=== PATIENT | female | born 1935 | race Caucasian/White ===

== ENCOUNTER 2023-04-16 17:23 | Inpatient (IN) | payer OTHER, MEDICARE ==
[2023-04-16] MEDS ORDERED: PIPERACILLIN/TAZOB 3.375 GM 3.375 GM in DEXTROSE 5%-WATER - 50 ML IVPB ONE (17:33)
[2023-04-16] MEDS ORDERED: PIPERACILLIN/TAZOBACTAM 3.375 GM VIAL IVPB ONE (18:39)
[2023-04-16 19:03] LABS: HEMATOCRIT 35.8 % (32.4-45.2); HEMOGLOBIN 11.9 G/dL (10.7-15.3); MCH 32.2 pg (25.7-33.7); MCHC 33.4 g/dl (32.0-36.0); MEAN CELL VOLUME 96.5 fl (80-96); MEAN PLT VOLUME 9.1 fl (7.5-11.1); PLATELET COUNT 250.2 10^3/uL (134-434); RBC 3.71 10^6/uL (3.60-5.2); RDW 14.4 % (11.6-15.6); WHITE BLOOD COUNT 6.5 10^3/uL (4.0-10.8)
[2023-04-16] MEDS ORDERED: FLUCONAZOLE 150 MG TABLET PO ONE ×2 (19:06→19:45)
[2023-04-16 19:18] LABS: INR 0.89 (0.83-1.09); PROTHROMBIN TIME (PATIENT) 10.3 SEC (9.7-13.0)
[2023-04-16 19:21] LABS: ACTIVATED PTT 29.6 SECONDS (25.2-36.5)
[2023-04-16 19:30] LABS: ALBUMIN 3.9 g/dl (3.4-5.0); BILIRUBIN,TOTAL 0.2 mg/dl (0.2-1); BLOOD UREA NITROGEN 28.7 mg/dl (7-18); CALCIUM 8.2 mg/dl (8.5-10.1); CREATININE 1.2 mg/dl (0.6-1.3); POTASSIUM 4.7 mmol/L (3.5-5.1); SGOT/AST 23.4 U/L (15-37); SGPT/ALT 20.8 U/L (7-52); TOT PROT 5.8 g/dl (6.4-8.2)
[2023-04-16 19:51] LABS: PLATELET ESTIMATE ADEQUATE
[2023-04-16 21:53] VITALS: BMI 21.3
[2023-04-16] MEDS: CITALOPRAM HYDROBROMIDE 20 MG TABLET PO SCH (22:13)
[2023-04-16] MEDS: MELATONIN 5 MG TABLETS PO SCH (22:13)
[2023-04-16] MEDS: LACTOBACILLUS ACIDOPHILUS 1 TABLET PO SCH (22:13)
[2023-04-16] MEDS ORDERED: PANTOPRAZOLE SOD 40 MG SUSPENSION PACKET PO ONE (22:45)
[2023-04-17] MEDS ORDERED: PIPERACILLIN/TAZOB 2.25 GM 2.25 GM in DEXTROSE 5%-WATER - 50 ML IVPB SCH (02:00)
[2023-04-17] MEDS ORDERED: ACETAMINOPHEN 1000 MG/100 ML BAG IVPB PRN (06:29)
[2023-04-17] MEDS: PIPERACILLIN/TAZOB 3.375 GM 3.375 GM in DEXTROSE 5%-WATER - 50 ML IVPB SCH ×2 (09:38→17:15)
[2023-04-17 09:42] LABS: ALBUMIN 3.6 g/dl (3.4-5.0); BILIRUBIN,TOTAL 0.2 mg/dl (0.2-1); BLOOD UREA NITROGEN 26.2 mg/dl (7-18); CALCIUM 7.8 mg/dl (8.5-10.1); CREATININE 1.2 mg/dl (0.6-1.3); POTASSIUM 4.4 mmol/L (3.5-5.1); SGOT/AST 23.2 U/L (15-37); SGPT/ALT 19.7 U/L (7-52); TOT PROT 5.2 g/dl (6.4-8.2)
[2023-04-17] MEDS: LACTOBACILLUS ACIDOPHILUS 1 TABLET PO SCH ×2 (10:37→21:26)
[2023-04-17] MEDS: LOSARTAN POTASSIUM 50 MG TABLET PO SCH (10:37)
[2023-04-17] MEDS: NYSTATIN 100,000 UNIT/GM TOPICAL CREAM 15 GM TUBE TP SCH ×2 (10:38→21:28)
[2023-04-17] MEDS: CITALOPRAM HYDROBROMIDE 20 MG TABLET PO SCH (21:25)
[2023-04-17] MEDS: MELATONIN 5 MG TABLETS PO SCH (21:25)
[2023-04-17] MEDS: TEMAZEPAM 15 MG CAPSULE PO SCH (21:25)
[2023-04-17] MEDS: OFLOXACIN 0.3% OTIC SOLUTION 5 ML BOTTLE AD SCH (22:34)
[2023-04-18] MEDS: PIPERACILLIN/TAZOB 3.375 GM 3.375 GM in DEXTROSE 5%-WATER - 50 ML IVPB SCH ×3 (02:16→18:26)
[2023-04-18 09:20] LABS: BASO % 1.2 % (0-2.0); EOS % 4.4 % (0-4.5); HEMATOCRIT 36.8 % (32.4-45.2); HEMOGLOBIN 12.1 GM/dL (10.7-15.3); LYMPH % 40.1 % (8-40); MCH 31.5 pg (25.7-33.7); MCHC 32.9 g/dl (32.0-36.0); MEAN CELL VOLUME 95.5 fl (80-96); MEAN PLT VOLUME 8.8 fl (7.5-11.1); MONO % 8.1 % (3.8-10.2); NEUT % 46.2 % (42.8-82.8); PLATELET COUNT 248 10^3/uL (134-434); RBC 3.85 M/mm3 (3.60-5.2); RDW 13.8 % (11.6-15.6); WHITE BLOOD COUNT 5.1 K/mm3 (4.0-10.0)
[2023-04-18 09:41] LABS: POTASSIUM 4.7 mmol/L (3.5-5.1)
[2023-04-18] MEDS: LACTOBACILLUS ACIDOPHILUS 1 TABLET PO SCH ×2 (09:45→21:17)
[2023-04-18] MEDS: LOSARTAN POTASSIUM 50 MG TABLET PO SCH (09:45)
[2023-04-18 09:47] LABS: BILIRUBIN,TOTAL 0.3 mg/dL (0.2-1)
[2023-04-18] MEDS: OFLOXACIN 0.3% OTIC SOLUTION 5 ML BOTTLE AD SCH ×2 (09:47→21:19)
[2023-04-18] MEDS: NYSTATIN 100,000 UNIT/GM TOPICAL CREAM 15 GM TUBE TP SCH ×2 (09:48→21:19)
[2023-04-18 09:53] LABS: CALCIUM 8.2 mg/dL (8.5-10.1)
[2023-04-18 09:54] LABS: ALBUMIN 3.2 g/dl (3.4-5.0); BLOOD UREA NITROGEN 18.7 mg/dL (7-18)
[2023-04-18 12:42] LABS: BASO % 0.9 % (0-2.0); EOS % 3.2 % (0-4.5); HEMATOCRIT 36.9 % (32.4-45.2); HEMOGLOBIN 12.7 GM/dL (10.7-15.3); LYMPH % 41.7 % (8-40); MCHC 34.5 g/dl (32.0-36.0); MEAN CELL VOLUME 92.8 fl (80-96); MEAN PLT VOLUME 8.9 fl (7.5-11.1); MONO % 7.7 % (3.8-10.2); NEUT % 46.5 % (42.8-82.8); PLATELET COUNT 266 10^3/uL (134-434); RBC 3.98 M/mm3 (3.60-5.2); RDW 13.7 % (11.6-15.6); WHITE BLOOD COUNT 5.8 K/mm3 (4.0-10.0)
[2023-04-18] MEDS: POLYETHYLENE GLYCOL (HEALTHYLAX) 3350 17 GM PACKET PO SCH (15:29)
[2023-04-18] MEDS: CITALOPRAM HYDROBROMIDE 20 MG TABLET PO SCH (21:17)
[2023-04-18] MEDS: MELATONIN 5 MG TABLETS PO SCH (21:18)
[2023-04-18] MEDS: TEMAZEPAM 15 MG CAPSULE PO SCH (21:18)
[2023-04-19] MEDS: PIPERACILLIN/TAZOB 3.375 GM 3.375 GM in DEXTROSE 5%-WATER - 50 ML IVPB SCH ×3 (02:08→18:47)
[2023-04-19] MEDS: LOSARTAN POTASSIUM 50 MG TABLET PO SCH (09:05)
[2023-04-19] MEDS: LACTOBACILLUS ACIDOPHILUS 1 TABLET PO SCH ×2 (09:05→21:00)
[2023-04-19] MEDS: POLYETHYLENE GLYCOL (HEALTHYLAX) 3350 17 GM PACKET PO SCH (09:06)
[2023-04-19] MEDS: NYSTATIN 100,000 UNIT/GM TOPICAL CREAM 15 GM TUBE TP SCH ×2 (09:07→21:02)
[2023-04-19] MEDS: OFLOXACIN 0.3% OTIC SOLUTION 5 ML BOTTLE AD SCH ×2 (09:07→21:02)
[2023-04-19] MEDS: TEMAZEPAM 15 MG CAPSULE PO SCH (21:00)
[2023-04-19] MEDS: MELATONIN 5 MG TABLETS PO SCH (21:00)
[2023-04-19] MEDS: CITALOPRAM HYDROBROMIDE 20 MG TABLET PO SCH (21:00)
[2023-04-20] MEDS: PIPERACILLIN/TAZOB 3.375 GM 3.375 GM in DEXTROSE 5%-WATER - 50 ML IVPB SCH ×3 (02:07→17:13)
[2023-04-20 04:35] VITALS: RESP 18
[2023-04-20 08:40] LABS: BASO % 0.7 % (0-2.0); EOS % 4.9 % (0-4.5); HEMATOCRIT 36.4 % (32.4-45.2); HEMOGLOBIN 11.9 GM/dL (10.7-15.3); LYMPH % 36.8 % (8-40); MCH 31.4 pg (25.7-33.7); MCHC 32.7 g/dl (32.0-36.0); MEAN CELL VOLUME 96.1 fl (80-96); MEAN PLT VOLUME 8.6 fl (7.5-11.1); MONO % 7.6 % (3.8-10.2); PLATELET COUNT 257 10^3/uL (134-434); RBC 3.79 M/mm3 (3.60-5.2); RDW 13.8 % (11.6-15.6); WHITE BLOOD COUNT 6.3 K/mm3 (4.0-10.0)
[2023-04-20 09:06] LABS: POTASSIUM 4.8 mmol/L (3.5-5.1)
[2023-04-20 09:16] LABS: BLOOD UREA NITROGEN 26.2 mg/dL (7-18)
[2023-04-20 09:18] LABS: BILIRUBIN,TOTAL 0.2 mg/dL (0.2-1)
[2023-04-20 09:24] LABS: CALCIUM 8.4 mg/dL (8.5-10.1)
[2023-04-20] MEDS: LACTOBACILLUS ACIDOPHILUS 1 TABLET PO SCH (09:25)
[2023-04-20] MEDS: LOSARTAN POTASSIUM 50 MG TABLET PO SCH (09:25)
[2023-04-20] MEDS: OFLOXACIN 0.3% OTIC SOLUTION 5 ML BOTTLE AD SCH (09:27)
[2023-04-20] MEDS: NYSTATIN 100,000 UNIT/GM TOPICAL CREAM 15 GM TUBE TP SCH (09:27)
[2023-04-20 14:41] VITALS: BP 138/62; PULSE 67; TEMP 97.4
== END 2023-04-20 19:40 | disposition home or self-care (01) | DRG 153 ==
LOC: FER 17:23 → FM/S 17:42 → J6S 04-17 14:19
PROVIDERS: ADMIT Internal Medicine; ATTEND Internal Medicine
DX: H66.001 Acute suppurative otitis media without spontaneous rupture of ear drum, right ear (principal); H70.891 Other mastoiditis and related conditions, right ear; I10 Essential (primary) hypertension; K64.9 Unspecified hemorrhoids; K21.9 Gastro-esophageal reflux disease without esophagitis; F32.A Depression, unspecified; H60.91 Unspecified otitis externa, right ear; K64.8 Other hemorrhoids; Z85.07 Personal history of malignant neoplasm of pancreas
CPT/HCPCS: 36415; 70480-TC; 80053; 83605; 85025; 85027; 85610; 85730; 86850; 86900; 86901; 87040; 87045; 87046; 87086; 87205; 87209; 87324; 87449; 99285-25

== ENCOUNTER 2023-09-12 16:59 | Inpatient (IN) | payer OTHER, MEDICARE ==
[2023-09-12] MEDS ORDERED: MECLIZINE HCL 25 MG TABLET (FP) ONE (18:52)
[2023-09-12 19:01] LABS: HEMATOCRIT 34.9 % (32.4-45.2); HEMOGLOBIN 11.8 G/dL (10.7-15.3); MCH 31.5 pg (25.7-33.7); MCHC 33.7 g/dl (32.0-36.0); MEAN CELL VOLUME 93.6 fl (80-96); PLATELET COUNT 190.4 10^3/uL (134-434); RBC 3.73 10^6/uL (3.60-5.2); RDW 13.9 % (11.6-15.6); WHITE BLOOD COUNT 5.4 10^3/uL (4.0-10.8)
[2023-09-12 19:14] LABS: ALBUMIN 3.7 g/dl (3.4-5.0); BILIRUBIN,TOTAL 0.4 mg/dl (0.2-1); CREATININE 0.9 mg/dl (0.6-1.3); TOT PROT 5.9 g/dl (6.4-8.2)
[2023-09-12 19:17] LABS: EPITHELIAL CELLS 0-5 /hpf
[2023-09-12] MEDS: MECLIZINE HCL 25 MG TABLET (FP) PO ONE (19:19)
[2023-09-12] MEDS: SODIUM CHLORIDE 0.9% 500 ML INFUS.BAG IV ONE (19:34)
[2023-09-12 19:36] LABS: PLATELET ESTIMATE ADEQUATE
[2023-09-13] MEDS: traZODone HCL 50 MG TABLET (FP) PO ONE (01:17)
[2023-09-13] MEDS: MECLIZINE HCL 25 MG TABLET (FP) PO PRN (01:17)
[2023-09-13] MEDS: DEXTROSE 5%-0.45% SALINE 1,000 ML IV SCH (06:47)
[2023-09-13] MEDS: CITALOPRAM HYDROBROMIDE 20 MG TABLET PO SCH (09:21)
[2023-09-13] MEDS: LOSARTAN POTASSIUM 50 MG TABLET PO SCH (09:21)
[2023-09-13] MEDS: ENOXAPARIN NA (PORCINE) 30 MG/0.3 ML DISP.SYRIN SQ SCH (09:21)
[2023-09-13 16:23] VITALS: BMI 20.5
[2023-09-13] MEDS ORDERED: LOSARTAN POTASSIUM 50 MG TABLET PO ONE (22:10)
[2023-09-13] MEDS: LOSARTAN POTASSIUM 50 MG TABLET PO ONE (22:45)
[2023-09-13] MEDS: traZODone HCL 50 MG TABLET (FP) PO PRN (23:16)
[2023-09-14] MEDS: LOSARTAN POTASSIUM 50 MG TABLET PO SCH (09:39)
[2023-09-14] MEDS: MECLIZINE HCL 25 MG TABLET (FP) PO SCH (21:00)
[2023-09-15] MEDS: ZOLPIDEM TARTRATE 5 MG TABLET PO ONE (02:40)
[2023-09-15] MEDS: ACETAMINOPHEN 325 MG TABLET (FP) PO ONE (02:40)
[2023-09-15] MEDS: LIDOCAINE 5% TOPICAL PATCH TP SCH (16:13)
[2023-09-15 17:10] LABS: HEMOGLOBIN 12.7 G/dL (10.7-15.3); MCH 31.5 pg (25.7-33.7); MCHC 33.4 g/dl (32.0-36.0); MEAN CELL VOLUME 94.2 fl (80-96); MEAN PLT VOLUME 9.2 fl (7.5-11.1); PLATELET COUNT 198.3 10^3/uL (134-434); RBC 4.03 10^6/uL (3.60-5.2); RDW 13.9 % (11.6-15.6); WHITE BLOOD COUNT 9.1 10^3/uL (4.0-10.8)
[2023-09-15 17:18] LABS: PLATELET ESTIMATE ADEQUATE
[2023-09-15] MEDS ORDERED: IBUPROFEN 400 MG TABLET (FP) PO PRN (17:30)
[2023-09-15] MEDS: ACETAMINOPHEN 325 MG TABLET (FP) PO SCH (17:51)
[2023-09-15] MEDS: IBUPROFEN 400 MG TABLET (FP) PO ONE (17:53)
[2023-09-15] MEDS: LIDOCAINE 5% TOPICAL PATCH TP STA (19:21)
[2023-09-15 20:13] VITALS: RESP 18
[2023-09-15] MEDS: LIDOCAINE PATCH REMOVAL MC SCH ×2 (21:30→21:31)
[2023-09-15] MEDS ORDERED: ZOLPIDEM TARTRATE 5 MG TABLET PO PRN (22:00)
[2023-09-16 07:07] VITALS: TEMP 97.8
[2023-09-16 11:05] VITALS: BP 119/64; PULSE 67
== END 2023-09-16 14:20 | disposition home or self-care (01) | DRG 149 ==
LOC: FER 16:59 → FM/S 17:52
PROVIDERS: ADMIT Internal Medicine; ATTEND Internal Medicine
DX: R42 Dizziness and giddiness (principal); I10 Essential (primary) hypertension; M10.9 Gout, unspecified
CPT/HCPCS: 36415; 70450-TC; 71101-TC-RT-FY; 72125-TC; 80053; 81003; 81015; 84484; 84550; 85027; 87086; 93005; 97116-GP; 97162-GP; 99285-25

== ENCOUNTER 2023-12-25 13:03 | Inpatient (IN) | payer OTHER, MEDICARE ==
[2023-12-25 14:32] LABS: BASO % 0.9 % (0-2.0); EOS % 5.2 % (0-4.5); HEMATOCRIT 30.8 % (32.4-45.2); HEMOGLOBIN 10.2 GM/dL (10.7-15.3); LYMPH % 23.7 % (8-40); MCH 30.1 pg (25.7-33.7); MEAN CELL VOLUME 91.3 fl (80-96); MEAN PLT VOLUME 8.8 fl (7.5-11.1); MONO % 9.3 % (3.8-10.2); NEUT % 60.9 % (42.8-82.8); PLATELET COUNT 192 10^3/uL (134-434); RBC 3.38 M/mm3 (3.60-5.2); RDW 15.4 % (11.6-15.6); WHITE BLOOD COUNT 6.4 K/mm3 (4.0-10.0)
[2023-12-25 14:33] LABS: VENOUS BASE EXCESS -5.6 mmol/L (-2-2); VENOUS O2 SATURATION 45.2 % (70-80); VENOUS PH 7.341 (7.310-7.410)
[2023-12-25] MEDS ORDERED: ACETAMINOPHEN INJECTION 100 ML IVPB ONE (14:34)
[2023-12-25 14:38] LABS: INR 0.88 (0.83-1.09); PROTHROMBIN TIME (PATIENT) 10.2 SEC (9.7-13.0)
[2023-12-25 14:41] LABS: ACTIVATED PTT 29.9 SECONDS (25.2-36.5)
[2023-12-25] MEDS: ACETAMINOPHEN 1000 MG/100 ML BAG IVPB ONE (14:51)
[2023-12-25 14:52] LABS: POTASSIUM 4.1 mmol/L (3.5-5.1)
[2023-12-25 14:55] LABS: BLOOD UREA NITROGEN 31.1 mg/dL (7-18)
[2023-12-25 14:57] LABS: CREATININE 1.2 mg/dL (0.55-1.3)
[2023-12-25 15:01] LABS: BILIRUBIN,TOTAL 0.4 mg/dL (0.2-1)
[2023-12-25] MEDS: LACTATED RINGERS SOLUTION 1000 ML INFUS.BAG IV ONE (16:21)
[2023-12-25 18:21] LABS: PH,URINE 5.5 (5.0-8.0); URINE APPEARANCE CLEAR; URINE BILIRUBIN NEGATIVE (NEGATIVE); URINE COLOR YELLOW; URINE GLUCOSE (UA) NEGATIVE (NEGATIVE); URINE KETONE NEGATIVE (NEGATIVE); URINE LEUK ESTERASE NEGATIVE (NEGATIVE); URINE NITRITE NEGATIVE (NEGATIVE); URINE PROTEIN NEGATIVE (NEGATIVE); URINE UROBILINOGEN 0.2 mg/dL (0.2-1.0)
[2023-12-25 20:00] LABS: BASO % 1.2 % (0-2.0); EOS % 5.5 % (0-4.5); HEMATOCRIT 31.8 % (32.4-45.2); HEMOGLOBIN 10.5 GM/dL (10.7-15.3); LYMPH % 27.2 % (8-40); MCH 30.3 pg (25.7-33.7); MCHC 33.1 g/dl (32.0-36.0); MEAN CELL VOLUME 91.5 fl (80-96); MEAN PLT VOLUME 9.3 fl (7.5-11.1); MONO % 7.9 % (3.8-10.2); NEUT % 58.2 % (42.8-82.8); PLATELET COUNT 190 10^3/uL (134-434); RBC 3.48 M/mm3 (3.60-5.2); RDW 15.9 % (11.6-15.6)
[2023-12-25 22:24] LABS: RETICULOCYTES 1.35 % (0.5-1.5)
[2023-12-25 23:23] LABS: ANISOCYTOSIS 1+; MACROCYTOSIS 0
[2023-12-26] MEDS: LACTOBACILLUS ACIDOPHILUS 1 TABLET PO SCH (00:46)
[2023-12-26] MEDS: ZOLPIDEM TARTRATE 5 MG TABLET PO PRN (03:33)
[2023-12-26 04:02] VITALS: BMI 21.3
[2023-12-26 08:51] LABS: HEMATOCRIT 30.6 % (32.4-45.2); HEMOGLOBIN 10.3 GM/dL (10.7-15.3); MCH 30.6 pg (25.7-33.7); MCHC 33.6 g/dl (32.0-36.0); MEAN CELL VOLUME 90.9 fl (80-96); MEAN PLT VOLUME 9.4 fl (7.5-11.1); PLATELET COUNT 200 10^3/uL (134-434); RBC 3.37 M/mm3 (3.60-5.2); RDW 15.3 % (11.6-15.6); WHITE BLOOD COUNT 5.8 K/mm3 (4.0-10.0)
[2023-12-26 09:14] LABS: CALCIUM 8.1 mg/dL (8.5-10.1)
[2023-12-26 09:15] LABS: ALBUMIN 2.8 g/dl (3.4-5.0); BLOOD UREA NITROGEN 24.9 mg/dL (7-18); MAGNESIUM 2.3 mg/dL (1.8-2.4)
[2023-12-26 09:18] LABS: PHOSPHOROUS 4.1 mg/dL (2.5-4.9); TOT PROT 5.4 g/dl (6.4-8.2)
[2023-12-26 09:19] LABS: BILIRUBIN,TOTAL 0.3 mg/dL (0.2-1)
[2023-12-26] MEDS: CITALOPRAM HYDROBROMIDE 20 MG TABLET PO SCH (09:59)
[2023-12-26] MEDS: LOSARTAN POTASSIUM 50 MG TABLET PO SCH (09:59)
[2023-12-26] MEDS: CHOLESTYRAMINE/SUCROSE 4 GM PACKET PO SCH (11:36)
[2023-12-26] MEDS: CHOLESTYRAMINE/NUTRASWEET 4 GM PACKET PO SCH (11:42)
[2023-12-27 08:34] LABS: HEMATOCRIT 31.6 % (32.4-45.2); HEMOGLOBIN 10.5 GM/dL (10.7-15.3); MCHC 33.1 g/dl (32.0-36.0); MEAN CELL VOLUME 90.8 fl (80-96); MEAN PLT VOLUME 9.4 fl (7.5-11.1); PLATELET COUNT 206 10^3/uL (134-434); RBC 3.48 M/mm3 (3.60-5.2); RDW 15.7 % (11.6-15.6); WHITE BLOOD COUNT 6.9 K/mm3 (4.0-10.0)
[2023-12-27 08:53] LABS: POTASSIUM 4.2 mmol/L (3.5-5.1)
[2023-12-27 09:14] LABS: BLOOD UREA NITROGEN 27.7 mg/dL (7-18)
[2023-12-27 09:15] LABS: ALBUMIN 2.8 g/dl (3.4-5.0); BILIRUBIN,TOTAL 0.4 mg/dL (0.2-1); CALCIUM 8.4 mg/dL (8.5-10.1); MAGNESIUM 2.2 mg/dL (1.8-2.4); PHOSPHOROUS 3.7 mg/dL (2.5-4.9); TOT PROT 5.7 g/dl (6.4-8.2)
[2023-12-27] MEDS: ENOXAPARIN NA (PORCINE) 40 MG/0.4 ML DISP.SYRIN SQ SCH (09:49)
[2023-12-28 08:09] LABS: HEMATOCRIT 32.7 % (32.4-45.2); HEMOGLOBIN 10.8 GM/dL (10.7-15.3); MCH 30.2 pg (25.7-33.7); MCHC 33.1 g/dl (32.0-36.0); MEAN CELL VOLUME 91.4 fl (80-96); MEAN PLT VOLUME 9.2 fl (7.5-11.1); PLATELET COUNT 215 10^3/uL (134-434); RBC 3.57 M/mm3 (3.60-5.2); RDW 15.3 % (11.6-15.6); WHITE BLOOD COUNT 7.8 K/mm3 (4.0-10.0)
[2023-12-28 08:21] LABS: POTASSIUM 4.2 mmol/L (3.5-5.1)
[2023-12-28 08:24] LABS: CALCIUM 8.5 mg/dL (8.5-10.1)
[2023-12-28 08:25] LABS: MAGNESIUM 2.1 mg/dL (1.8-2.4)
[2023-12-28 08:26] LABS: BLOOD UREA NITROGEN 29.5 mg/dL (7-18)
[2023-12-28 08:28] LABS: CREATININE 1.1 mg/dL (0.55-1.3)
[2023-12-28 08:29] LABS: PHOSPHOROUS 3.9 mg/dL (2.5-4.9)
[2023-12-28 08:30] LABS: TOT PROT 5.9 g/dl (6.4-8.2)
[2023-12-28 08:31] LABS: BILIRUBIN,TOTAL 0.4 mg/dL (0.2-1)
[2023-12-28] MEDS: metoPROLOL SUCCINATE 25 MG TAB.SR.24H (FP) PO SCH (09:44)
[2023-12-28] MEDS: ASPIRIN COATED 81 MG TABLET.EC PO SCH (09:45)
[2023-12-28] MEDS: SPIRONOLACTONE 25 MG TABLET PO SCH (09:45)
[2023-12-28] MEDS: EMPAGLIFLOZIN (JARDIANCE) 10 MG TABLET PO SCH (09:48)
[2023-12-28] MEDS: ACETAMINOPHEN 325 MG TABLET (FP) PO PRN (13:10)
[2023-12-28 16:08] LABS: PARV B19 IGG 0.3 index (0.0-0.8); PARV B19 IGM 0.3 index (0.0-0.8)
[2023-12-28] MEDS ORDERED: POLYETHYLENE GLYCOL (HEALTHYLAX) 3350 17 GM PACKET PO SCH (18:00)
[2023-12-28] MEDS: POLYETHYLENE GLYCOL (HEALTHYLAX) 3350 17 GM PACKET PO SCH (19:11)
[2023-12-29 09:30] LABS: HEMATOCRIT 32.4 % (32.4-45.2); HEMOGLOBIN 10.9 GM/dL (10.7-15.3); MCH 30.4 pg (25.7-33.7); MCHC 33.5 g/dl (32.0-36.0); MEAN CELL VOLUME 90.8 fl (80-96); PLATELET COUNT 213 10^3/uL (134-434); RBC 3.57 M/mm3 (3.60-5.2); RDW 15.6 % (11.6-15.6); WHITE BLOOD COUNT 8.1 K/mm3 (4.0-10.0)
[2023-12-29 09:58] LABS: POTASSIUM 4.1 mmol/L (3.5-5.1)
[2023-12-29 10:14] LABS: ALBUMIN 3.1 g/dl (3.4-5.0)
[2023-12-29 10:15] LABS: CALCIUM 8.5 mg/dL (8.5-10.1)
[2023-12-29 10:16] LABS: BLOOD UREA NITROGEN 34.8 mg/dL (7-18); MAGNESIUM 2.2 mg/dL (1.8-2.4)
[2023-12-29 10:19] LABS: CREATININE 1.2 mg/dL (0.55-1.3)
[2023-12-29 10:20] LABS: BILIRUBIN,TOTAL 0.6 mg/dL (0.2-1); TOT PROT 6.2 g/dl (6.4-8.2)
[2023-12-29] MEDS: POLYETHYLENE GLYCOL (HEALTHYLAX) 3350 17 GM PACKET PO SCH (10:58)
[2023-12-29] MEDS: methylPREDNISolone NA SUCC 40 MG/1 ML VIAL IVPUSH ONE (11:01)
[2023-12-29] MEDS: SODIUM CHLORIDE 1,000 ML IV SCH ×2 (13:01→19:12)
[2023-12-29] MEDS: MELATONIN 5 MG TABLETS PO SCH (23:24)
[2023-12-30] MEDS: methylPREDNISolone NA SUCC 40 MG/1 ML VIAL IVPUSH SCH (09:11)
[2023-12-31 10:34] VITALS: RESP 16
[2023-12-31] MEDS: SACUBITRIL/VALSARTAN 24 MG-26 MG TABLET PO SCH (11:05)
[2023-12-31 14:46] VITALS: BP 128/62; PULSE 57; TEMP 97.6
== END 2023-12-31 16:17 | disposition home or self-care (01) | DRG 197 ==
LOC: JER 13:03 → JERBED 19:19 → INTOOBSV 19:19 → J5S 23:54 → OBSVTOIN 12-26 10:48
PROVIDERS: ADMIT Internal Medicine
DX: J84.9 Interstitial pulmonary disease, unspecified (principal); I50.22 Chronic systolic (congestive) heart failure; D64.9 Anemia, unspecified; I25.10 Atherosclerotic heart disease of native coronary artery without angina pectoris; M51.16 Intervertebral disc disorders with radiculopathy, lumbar region; I25.5 Ischemic cardiomyopathy; K21.9 Gastro-esophageal reflux disease without esophagitis; F32.A Depression, unspecified; I11.0 Hypertensive heart disease with heart failure; R05.9 Cough, unspecified; R09.02 Hypoxemia; Z85.07 Personal history of malignant neoplasm of pancreas
CPT/HCPCS: 0241U-QW; 36415; 70450-TC; 71045-TC-FY; 71250-TC; 76705-TC; 80053; 80061; 81003; 82272; 82607; 82728; 82803; 82977; 83010; 83036; 83540; 83550; 83605; 83615; 83735; 83880; 84100; 84443; 84484; 85025; 85027; 85045; 85362; 85610; 85651; 85730; 86038; 86140; 86682; 86704; 86705; 86708; 86747; 86803; 86850; 86900; 86901; 87086; 87340; 87497; 87517; 87799; 87899; 93005; 93010; 94761; 97116-GP; 97162-GP; 99285-25; G0378

== ENCOUNTER 2024-01-01 15:36 | Inpatient (IN) | payer OTHER, MEDICARE ==
[2024-01-01 15:55] VITALS: BMI 18.8
[2024-01-01 18:13] LABS: BASO % 0.3 % (0-2.0); EOS % 0.1 % (0-4.5); HEMATOCRIT 35.1 % (32.4-45.2); HEMOGLOBIN 11.5 GM/dL (10.7-15.3); LYMPH % 12.5 % (8-40); MCHC 32.9 g/dl (32.0-36.0); MEAN CELL VOLUME 91.4 fl (80-96); MEAN PLT VOLUME 9.5 fl (7.5-11.1); MONO % 1.1 % (3.8-10.2); PLATELET COUNT 294 10^3/uL (134-434); RBC 3.84 M/mm3 (3.60-5.2); RDW 15.8 % (11.6-15.6); WHITE BLOOD COUNT 8.5 K/mm3 (4.0-10.0)
[2024-01-01 18:21] LABS: VENOUS BASE EXCESS -9.1 mmol/L (-2-2); VENOUS O2 SATURATION 58.1 % (70-80); VENOUS PCO2 30.3 mmHg (38-52); VENOUS PH 7.33 (7.310-7.410)
[2024-01-01 18:34] LABS: INR 0.88 (0.83-1.09); POTASSIUM 4.8 mmol/L (3.5-5.1)
[2024-01-01 18:37] LABS: ACTIVATED PTT 27.2 SECONDS (25.2-36.5); ALBUMIN 3.6 g/dl (3.4-5.0); BLOOD UREA NITROGEN 47.8 mg/dL (7-18); CALCIUM 8.7 mg/dL (8.5-10.1); MAGNESIUM 2.2 mg/dL (1.8-2.4)
[2024-01-01 18:42] LABS: BILIRUBIN,TOTAL 0.3 mg/dL (0.2-1); TOT PROT 6.7 g/dl (6.4-8.2)
[2024-01-01 18:46] LABS: CREATININE 1.4 mg/dL (0.55-1.3)
[2024-01-01 19:22] LABS: EPI CELLS 4 /uL (0-25.1); HYALINE CASTS 0 /uL (0-3.1); PH,URINE 5.5 (5.0-8.0); URINE APPEARANCE CLEAR; URINE BACTERIA >9,000 /uL (0-1359); URINE BILIRUBIN NEGATIVE (NEGATIVE); URINE COLOR YELLOW; URINE GLUCOSE (UA) 3+ (NEGATIVE); URINE KETONE NEGATIVE (NEGATIVE); URINE LEUK ESTERASE TRACE (NEGATIVE); URINE NITRITE NEGATIVE (NEGATIVE); URINE PROTEIN NEGATIVE (NEGATIVE); URINE RBC 4 /uL (0-23.9); URINE UROBILINOGEN 0.2 mg/dL (0.2-1.0); URINE WBC 91 /uL (0-25.8)
[2024-01-01] MEDS ORDERED: CEFTRIAXONE 1 GM/50 ML BAG ONE (20:17)
[2024-01-01] MEDS ORDERED: ZOLPIDEM TARTRATE 5 MG TABLET ONE (20:17)
[2024-01-01] MEDS: CEFTRIAXONE 1,000 MG in DEXTROSE 5%-WATER - 50 ML IVPB ONE (20:30)
[2024-01-01] MEDS: ZOLPIDEM TARTRATE 5 MG TABLET PO ONE (20:30)
[2024-01-01] MEDS: SODIUM CHLORIDE 0.9% 500 ML INFUS.BAG IV ONE (21:05)
[2024-01-01] MEDS ORDERED: ALBUTEROL SO4 HFA INHALER IH PRN (22:00)
[2024-01-01] MEDS ORDERED: ZOLPIDEM TARTRATE 5 MG TABLET PO PRN (22:00)
[2024-01-01] MEDS ORDERED: SACUBITRIL/VALSARTAN 24 MG-26 MG TABLET ONE (22:24)
[2024-01-01] MEDS ORDERED: HEPARIN NA (PORCINE) 5,000 UNITS/ML 1ML VIAL ONE (22:24)
[2024-01-01] MEDS: SACUBITRIL/VALSARTAN 24 MG-26 MG TABLET PO SCH (22:35)
[2024-01-01] MEDS: HEPARIN NA (PORCINE) 5,000 UNITS/ML 1ML VIAL SQ SCH (22:35)
[2024-01-01] MEDS: LACTOBACILLUS ACIDOPHILUS 1 TABLET PO SCH (23:50)
[2024-01-02 06:30] LABS: HEMATOCRIT 33.6 % (32.4-45.2); MCH 30.1 pg (25.7-33.7); MCHC 32.8 g/dl (32.0-36.0); MEAN CELL VOLUME 91.7 fl (80-96); MEAN PLT VOLUME 9.3 fl (7.5-11.1); PLATELET COUNT 269 10^3/uL (134-434); RBC 3.66 M/mm3 (3.60-5.2); RDW 15.7 % (11.6-15.6); WHITE BLOOD COUNT 9.2 K/mm3 (4.0-10.0)
[2024-01-02 06:44] LABS: CHLORIDE 110 mmol/L (98-107); POTASSIUM 4.9 mmol/L (3.5-5.1); SODIUM 139 mmol/L (136-145)
[2024-01-02 06:47] LABS: ALBUMIN 3.2 g/dl (3.4-5.0); ANION GAP 8 mmol/L (4-13); CALCIUM 8.3 mg/dL (8.5-10.1); CO2 20 mmol/L (21-32); GLUCOSE,RANDOM 122 mg/dL (74-106)
[2024-01-02 06:49] LABS: MAGNESIUM 2.2 mg/dL (1.8-2.4)
[2024-01-02 06:50] LABS: PHOSPHOROUS 4.2 mg/dL (2.5-4.9); SGOT/AST 13 U/L (15-37); SGPT/ALT 40 U/L (13-61)
[2024-01-02 06:51] LABS: BILIRUBIN,TOTAL 0.2 mg/dL (0.2-1)
[2024-01-02 06:52] LABS: TOT PROT 6.3 g/dl (6.4-8.2)
[2024-01-02 06:53] LABS: ALK PHOS 170 U/L (45-117)
[2024-01-02 08:58] LABS: ERYTHROCYTE SEDIMENTATION RATE 24 mm/hr (0-30)
[2024-01-02] MEDS ORDERED: CEFTRIAXONE 1 GM/50 ML BAG ONE (09:37)
[2024-01-02] MEDS ORDERED: predniSONE 20 MG TABLET (UD) PO SCH (10:00)
[2024-01-02] MEDS ORDERED: EMPAGLIFLOZIN (JARDIANCE) 10 MG TABLET PO SCH (10:00)
[2024-01-02] MEDS ORDERED: metoPROLOL SUCCINATE 25 MG TAB.SR.24H (FP) PO SCH (10:00)
[2024-01-02] MEDS: CHOLESTYRAMINE/SUCROSE 4 GM PACKET PO SCH (10:30)
[2024-01-02] MEDS: ASPIRIN COATED 81 MG TABLET.EC PO SCH (10:30)
[2024-01-02] MEDS: CITALOPRAM HYDROBROMIDE 20 MG TABLET PO SCH (10:30)
[2024-01-02] MEDS: CEFTRIAXONE 1 GM in DEXTROSE 5%-WATER - 50 ML IVPB SCH (10:30)
[2024-01-02] MEDS ORDERED: ASPIRIN 81 MG CHEWABLE TABLETS ONE (10:50)
[2024-01-02] MEDS: traZODone HCL 50 MG TABLET (FP) PO SCH (22:15)
[2024-01-02] MEDS: SACUBITRIL/VALSARTAN 24 MG-26 MG TABLET PO SCH (22:15)
[2024-01-03 10:29] LABS: ALBUMIN 3.2 g/dl (3.4-5.0); BLOOD UREA NITROGEN 48.3 mg/dL (7-18)
[2024-01-03 10:31] LABS: CALCIUM 8.5 mg/dL (8.5-10.1)
[2024-01-03 10:32] LABS: CREATININE 1.2 mg/dL (0.55-1.3)
[2024-01-03 10:34] LABS: BILIRUBIN,TOTAL 0.4 mg/dL (0.2-1)
[2024-01-03] MEDS: MAG HYDROX/AL HYDROX/SIMETH 30 ML UNIT-DOSE CUP PO PRN (16:18)
[2024-01-03] MEDS: MELATONIN 5 MG TABLETS PO SCH (23:01)
[2024-01-03] MEDS: traZODone HCL 50 MG TABLET (FP) PO SCH (23:28)
[2024-01-04] MEDS: PANTOPRAZOLE 40 MG TABLET PO SCH (06:42)
[2024-01-04 09:27] LABS: POTASSIUM 5.5 mmol/L (3.5-5.1)
[2024-01-04 09:28] LABS: CALCIUM 8.6 mg/dL (8.5-10.1)
[2024-01-04 09:29] LABS: BLOOD UREA NITROGEN 49.7 mg/dL (7-18)
[2024-01-04 09:32] LABS: CREATININE 1.4 mg/dL (0.55-1.3)
[2024-01-04] MEDS: predniSONE 20 MG TABLET (UD) PO SCH (10:12)
[2024-01-04 14:17] VITALS: RESP 20
[2024-01-04 14:18] VITALS: BP 103/55; PULSE 67; TEMP 98.1
== END 2024-01-04 15:30 | disposition home health service (06) | DRG 690 ==
LOC: JER 15:36 → JERBED 19:19 → OBSVTOIN 21:03 → J8W 01-02 21:58
PROVIDERS: ADMIT Internal Medicine; ATTEND Internal Medicine
DX: N39.0 Urinary tract infection, site not specified (principal); I50.22 Chronic systolic (congestive) heart failure; J84.9 Interstitial pulmonary disease, unspecified; I11.0 Hypertensive heart disease with heart failure; Z85.07 Personal history of malignant neoplasm of pancreas; I25.10 Atherosclerotic heart disease of native coronary artery without angina pectoris; I25.5 Ischemic cardiomyopathy; E86.0 Dehydration
CPT/HCPCS: 0241U-QW; 36415; 71045-TC-FY; 80048; 80053; 81003; 82436; 82550; 82570; 82607; 82803; 83735; 83880; 83935; 84100; 84133; 84156; 84300; 84484; 85025; 85027; 85610; 85651; 85730; 86140; 86850; 86900; 86901; 87086; 87186; 93005; 93010; 93880-TC; 97116-GP; 97161-GP; 99285-25; G0378; J1644